=== PATIENT | male | born 1955 | race Caucasian/White ===

== ENCOUNTER 2024-10-08 23:46 | Inpatient (IN) | payer MEDICARE ==
[~2024-10-08] VITALS: Ht 177.8 cm; Wt 59.0 kg
[2024-10-08 19:15] VITALS: BP 128/71; PULSE 52; RESP 19; TEMP 97.7; O2SAT 100
[2024-10-08 23:47] VITALS: TEMP 97.7
[2024-10-09] VITALS (8 sets, daily range): BP systolic 115–132; BP diastolic 59–72; PULSE 51–72; RESP 17–18; TEMP 97.9–98.5; O2SAT 96–100
[2024-10-09 00:21] LABS: BASOPHILS # (AUTO) 0.1 (0.0-0.1); BASOPHILS % 0.8 % (0.0-1.0); EOSINOPHILS # (AUTO) 0.2 (0.0-0.4); EOSINOPHILS % 2.5 % (0.0-6.0); HEMATOCRIT 45.9 % (38.2-49.6); HEMOGLOBIN 15.9 g/dL (14.0-18.0); LYMPHOCYTES # (AUTO) 2.9 (1.0-3.2); LYMPHOCYTES % 38.3 % (18.0-39.1); MEAN CORPUSCULAR HEMOGLOBIN 32.9 pg (28-32); MEAN CORPUSCULAR HGB CONC 34.6 g/dL (31-35); MONOCYTES # (AUTO) 0.7 (0.2-0.8); MONOCYTES % 9.5 % (4.4-11.3); NEUTROPHILS # (AUTO) 3.7 (2.1-6.9); NEUTROPHILS % 48.8 % (38.7-80.0); PLATELET COUNT 202 x10e3/uL (140-360); RED BLOOD COUNT 4.83 x10e6/uL (4.3-5.7); RED CELL DISTRIBUTION WIDTH 16.1 % (11.7-14.4)
[2024-10-09] MEDS: SODIUM CHLORIDE 0.9% 1000ML 1,000 ML IV STA (00:23)
[2024-10-09 00:36] LABS: STREPTOCOCCUS GRP A ANTIGEN NEGATIVE (NEGATIVE)
[2024-10-09 00:44] LABS: CORONAVIRUS COVID-19 AG NEGATIVE (NEGATIVE); INFLUENZA A AG NEGATIVE (NEGATIVE); INFLUENZA B AG NEGATIVE (NEGATIVE)
[2024-10-09 00:51] LABS: ALANINE AMINOTRANSFERASE 43 IU/L (0-55); ALBUMIN 4.8 g/dL (3.5-5.0); ALBUMIN/GLOBULIN RATIO 1.8 (0.8-2.0); ALKALINE PHOSPHATASE 106 IU/L (40-150); ANION GAP 19.5 mmol/L (8-16); BILIRUBIN,TOTAL 2.9 mg/dL (0.2-1.2); BLOOD UREA NITROGEN 14 mg/dL (7-26); BUN/CREATININE RATIO 14 (6-25); CARBON DIOXIDE 21 mmol/L (22-29); CHLORIDE 105 mmol/L (98-107); CREATINE KINASE 73 IU/L (30-200); EST GLOMERULAR FILTRATION RATE 81 ML/MIN (>=60); GLUCOSE 82 mg/dL (74-118); POTASSIUM 3.5 mmol/L (3.5-5.1); SODIUM 142 mmol/L (136-145); TOTAL PROTEIN 7.4 g/dL (6.5-8.1)
[2024-10-09 01:27] LABS: TROPONIN I < 0.05 ng/mL (0.0-0.40)
[2024-10-09 01:28] LABS: CLARITY,URINE CLEAR (CLEAR); COLOR,URINE YELLOW (YELLOW)
[2024-10-09 01:29] LABS: BILIRUBIN,URINE SMALL (NEGATIVE); GLUCOSE, URINE NEGATIVE (NEGATIVE); KETONES,URINE 2+ (NEGATIVE); LEUKOCYTE ESTERASE ,URINE NEGATIVE (NEGATIVE); NITRITE,URINE NEGATIVE (NEGATIVE); PH,URINE 6 (5 - 7); PROTEIN,URINE DIPSTICK TRACE (NEGATIVE)
[2024-10-09 01:48] LABS: BACTERIA,URINE FEW /HPF; EPITHELIAL CELLS,URINE FEW /LPF; RBC,URINE 0-5 /HPF (0-5); WBC,URINE (MAN) 0-5 /HPF (0-5)
[2024-10-09] MEDS: SODIUM CHLORIDE 0.9% 1000ML 1,000 ML IV SCH (04:55)
[2024-10-10] VITALS: BP 128/71; PULSE 52; RESP 19; TEMP 97.7; O2SAT 100
[2024-10-10 04:00] VITALS: BP 129/77; PULSE 51; RESP 20; TEMP 98.1; O2SAT 98
[2024-10-10 08:50] VITALS: BP 168/100; PULSE 89; RESP 18; TEMP 98.1; O2SAT 94
[2024-10-10 08:53] VITALS: BP 129/69; PULSE 50; RESP 18; TEMP 98.6; O2SAT 100
[2024-10-10 11:14] VITALS: BP 129/69; PULSE 50; RESP 18; TEMP 98.6; O2SAT 100
[2024-10-10 12:22] VITALS: BP 110/76; PULSE 71; RESP 18; TEMP 98.1; O2SAT 100
== END 2024-10-10 14:28 | disposition home or self-care (01) | DRG 641 ==
LOC: ER 23:57 → ERHOLD 10-09 01:48 → MED/SURG3 10-09 02:58
PROVIDERS: ADMIT Internal Medicine; ATTEND Internal Medicine
DX: E86.0 Dehydration (principal); Z59.12 Inadequate housing utilities; R00.1 Bradycardia, unspecified; F25.9 Schizoaffective disorder, unspecified; Z59.48 Other specified lack of adequate food; Z59.41 Food insecurity; Z58.6 Inadequate drinking-water supply; Z59.86 Financial insecurity; Z59.82 Transportation insecurity
CPT/HCPCS: 36415; 80053; 81001; 82550; 83518; 83690; 83880; 84484; 85025; 87070; 93005; 99252; 99284; J7030